=== PATIENT | female | born 1965 | race Two or more races ===

== ENCOUNTER 2022-03-12 07:22 | Observation (INO) | payer BC ==
[2022-03-12 07:39] VITALS: BMI 25.1
[2022-03-12] MEDS ORDERED: SODIUM CHLORIDE 1,000 ML IV STA (08:39)
[2022-03-12 09:00] LABS: BASO % 0.9 % (0-2.0); EOS % 2.9 % (0-4.5); HEMATOCRIT 40.9 % (32.4-45.2); HEMOGLOBIN 13.3 GM/dL (10.7-15.3); LYMPH % 26.2 % (8-40); MCH 28.9 pg (25.7-33.7); MCHC 32.5 g/dl (32.0-36.0); MEAN CELL VOLUME 88.9 fl (80-96); MEAN PLT VOLUME 9.3 fl (7.5-11.1); MONO % 7.4 % (3.8-10.2); NEUT % 62.6 % (42.8-82.8); PLATELET COUNT 343 10^3/uL (134-434); RDW 14.1 % (11.6-15.6); WHITE BLOOD COUNT 8.9 K/mm3 (4.0-10.0)
[2022-03-12 09:12] LABS: ACTIVATED PTT 34.7 SECONDS (25.2-36.5); INR 1.04 (0.83-1.09)
[2022-03-12 09:21] LABS: BLOOD UREA NITROGEN 14.4 mg/dL (7-18); CALCIUM 9.1 mg/dL (8.5-10.1)
[2022-03-12 09:26] LABS: CREATININE 0.8 mg/dL (0.55-1.3)
[2022-03-12 09:27] LABS: BILIRUBIN,TOTAL 0.7 mg/dL (0.2-1)
[2022-03-12] MEDS ORDERED: ACETAMINOPHEN 325 MG TABLET (FP) PO PRN (11:50)
[2022-03-12] MEDS ORDERED: KETOROLAC TROMETHAMINE 15 MG/ML VIAL IVPUSH PRN (12:11)
[2022-03-12] MEDS ORDERED: VALSARTAN 80 MG TABLET PO SCH (12:15)
[2022-03-12] MEDS ORDERED: HYDROCHLOROTHIAZIDE 12.5 MG CAPSULE (FP) PO SCH (12:15)
[2022-03-12 20:44] VITALS: RESP 18; TEMP 98.2
[2022-03-12] MEDS ORDERED: ACETAMINOPHEN 325 MG TABLET (FP) ONE ×2 (21:07→21:08)
[2022-03-13] MEDS ORDERED: KETOROLAC TROMETHAMINE 15 MG/ML VIAL ONE (07:38)
[2022-03-13] MEDS ORDERED: ENOXAPARIN NA (PORCINE) 40 MG/0.4 ML DISP.SYRIN SQ SCH (10:00)
[2022-03-13] MEDS ORDERED: PATIENT'S OWN MEDICATION (NON-FORMULARY) (Valsartan/Hydrochlorothiazide [Valsartan-Hctz 80 PO SCH (10:00)
[2022-03-13] MEDS ORDERED: ENOXAPARIN NA (PORCINE) 40 MG/0.4 ML DISP.SYRIN SQ ONE (11:01)
[2022-03-13 11:23] VITALS: BP 118/69; PULSE 70
== END 2022-03-13 11:39 | disposition home or self-care (01) ==
LOC: JER 07:22 → JERBED 08:22
PROVIDERS: ADMIT Internal Medicine; ATTEND Internal Medicine
PROC: 3E0333Z Introduction of Anti-inflammatory into Peripheral Vein, Percutaneous Approach (ICD-10-PCS; principal; 2022-03-12)
PROC: 3E0337Z Introduction of Electrolytic and Water Balance Substance into Peripheral Vein, Percutaneous Approach (ICD-10-PCS; 2022-03-12)
DX: R55 Syncope and collapse (principal); I10 Essential (primary) hypertension; G62.9 Polyneuropathy, unspecified; M79.605 Pain in left leg
CPT/HCPCS: 0241U-QW; 36415; 70450-TC; 71045-TC-FY; 72125-TC; 80053; 82962; 84443; 84484; 85025; 85610; 85730; 93005; 93010; 93306-TC; 93971-TC; 96361; 96374; 99285-25; G0378